=== PATIENT | male | born 1985 | race Caucasian/White ===

== ENCOUNTER 2021-06-25 13:53 | Emergency (ER) | payer OTHER ==
[2021-06-25] MEDS ORDERED: ZESTRIL10 M1 PO (14:09)
[2021-06-25] MEDS ORDERED: CAPOTEN 50MG50 MG PO (14:09)
[2021-06-25] MEDS ORDERED: AMLODIPINE BESYL5 MG PO (14:09)
[2021-06-25 14:52] LABS: BASO # 0.05 K/mm3 (0.02-0.10); EOS # 0.12 K/mm3 (0.04-0.40); EOS % 1.1 % (0.0-4.0); HEMATOCRIT 48.6 % (42.0-52.0); HEMOGLOBIN 17.1 g/dL (13.5-18.0); LYMPH# 1.29 K/mm3 (1.50-4.00); MEAN CELL VOLUME 90 fl (78-100); MEAN CORPUSCULAR HEMOGLOBIN 32 pg (27-31); MEAN CORPUSCULAR HGB CONC 35 g/dL (33-37); MEAN PLATELET VOLUME 11.1 fl (7.4-10.4); MONO # 0.88 K/mm3 (0.20-0.80); NEU # 8.04 K/mm3 (1.40-6.50); PLATELET COUNT 259 K/mm3 (130-400); RED BLOOD COUNT 5.39 M/mm3 (4.20-5.60); WHITE BLOOD COUNT 10.5 K/mm3 (4.8-10.8)
[2021-06-25 15:04] LABS: ALBUMIN 4.3 g/dL (3.5-5.0)
[2021-06-25 15:05] LABS: POTASSIUM 3.6 mmol/L (3.5-5.1); SODIUM 141 mmol/L (136-145)
[2021-06-25 15:06] LABS: CALCIUM 8.8 mg/dL (8.3-10.5)
[2021-06-25 15:07] LABS: GLUCOSE 101 mg/dL (75-110); TOTAL PROTEIN 7.1 g/dL (6.4-8.3)
[2021-06-25 15:08] LABS: CARBON DIOXIDE 20 mmol/L (22-29)
[2021-06-25 15:12] LABS: AST-SGOT 59 U/L (5-34)
[2021-06-25 15:14] LABS: ALT/SGPT 102 U/L (0-55)
[2021-06-25 15:21] LABS: TROPONIN-I < 0.030 ng/mL (<0.030)
[2021-06-25 15:40] VITALS: BP 146/94
== END 2021-06-25 15:40 | disposition home or self-care (01) ==
LOC: ED 13:53
PROVIDERS: Family Medicine
DX: I10 Essential (primary) hypertension (principal); R07.89 Other chest pain; Z79.899 Other long term (current) drug therapy